=== PATIENT | male | born 1995 | race Caucasian/White ===

== ENCOUNTER 2023-04-29 16:15 | Emergency (ER) | payer OTHER ==
[~2023-04-29] VITALS: Ht 180.3 cm; Wt 110.5 kg
[2023-04-29] MEDS ORDERED: AMOX-117 PO (18:01)
[2023-04-29 18:09] VITALS: BP 124/82; PULSE 83; RESP 16; TEMP 98.1; O2SAT 96
== END 2023-04-29 18:12 | disposition home or self-care (01) ==
LOC: ER 16:16
DX: S02.5XXA Fracture of tooth (traumatic), initial encounter for closed fracture (principal); S06.89AA Other specified intracranial injury with loss of consciousness status unknown, initial encounter; X58.XXXA Exposure to other specified factors, initial encounter; Y93.89 Activity, other specified; Y92.89 Other specified places as the place of occurrence of the external cause; Y99.8 Other external cause status
CPT/HCPCS: 99284